=== PATIENT | female | born 1945 | race Caucasian/White ===

== ENCOUNTER 2017-11-02 11:47 | Outpatient (CLI) | payer OTHER ==
[~2017-11-02 11:47] MED LIST: COUMADIN3 MG; GLUCOPHAGE XR500 MG PO; LIPITOR20 MG; METFORMIN HCL500 M1; NEURONTIN600 MG; NEURONTIN600 MG PO; NEURONTIN800 MG; PERCOCET 5/3251 TAB PO; PRINIVIL5 MG; SULFASALAZINE500 MG; SYNTHROID50 MCG; ULTRAM50 MG PO
== END 2017-11-02 11:49 | disposition home or self-care (01) ==
LOC: MAMO-SONO 11:47
DX: N64.89 Other specified disorders of breast (principal)

== ENCOUNTER 2018-01-17 10:21 | Outpatient (CLI) | payer OTHER | END 2018-01-17 10:23 | disposition home or self-care (01) | LOC: NUCLEAR 10:21 | DX: M81.0 Age-related osteoporosis without current pathological fracture (principal) ==

== ENCOUNTER 2020-12-03 11:17 | Outpatient (CLI) | payer OTHER | END 2020-12-03 11:31 | disposition home or self-care (01) | LOC: NUCLEAR 11:17 | PROVIDERS: ATTEND Internal Medicine Hematology & Oncology | DX: C50.412 Malignant neoplasm of upper-outer quadrant of left female breast (principal); D68.61 Antiphospholipid syndrome; Z85.3 Personal history of malignant neoplasm of breast; E72.12 Methylenetetrahydrofolate reductase deficiency; E72.11 Homocystinuria; D51.3 Other dietary vitamin B12 deficiency anemia; D51.1 Vitamin B12 deficiency anemia due to selective vitamin B12 malabsorption with proteinuria; E04.8 Other specified nontoxic goiter; Z79.01 Long term (current) use of anticoagulants; D05.12 Intraductal carcinoma in situ of left breast; I80.292 Phlebitis and thrombophlebitis of other deep vessels of left lower extremity; I10 Essential (primary) hypertension; E08.65 Diabetes mellitus due to underlying condition with hyperglycemia; E03.8 Other specified hypothyroidism; E55.9 Vitamin D deficiency, unspecified; I73.89 Other specified peripheral vascular diseases; E78.2 Mixed hyperlipidemia ==

== ENCOUNTER 2020-12-24 09:13 | Outpatient (CLI) | payer OTHER | END 2020-12-24 09:35 | disposition home or self-care (01) | LOC: MAMO-SONO 09:13 | PROVIDERS: ATTEND Surgery | DX: Z12.31 Encounter for screening mammogram for malignant neoplasm of breast (principal); N60.02 Solitary cyst of left breast; N60.11 Diffuse cystic mastopathy of right breast; N60.12 Diffuse cystic mastopathy of left breast ==

== ENCOUNTER 2022-10-13 07:13 | Outpatient (CLI) | payer OTHER | END 2022-10-13 07:14 | disposition home or self-care (01) | LOC: NUCLEAR 07:13 | PROVIDERS: ATTEND Internal Medicine Cardiovascular Disease | DX: I25.10 Atherosclerotic heart disease of native coronary artery without angina pectoris (principal) | CPT/HCPCS: 78452; 93017; A9500; J0153 ==

== ENCOUNTER → 2024-12-06 08:55 | Outpatient (CLI) | payer OTHER ==
[2024-12-06 10:13] LABS: URINE APPEARANCE Clear; URINE BILIRRUBIN Negative (NEGATIVE); URINE BLOOD Negative; URINE COLOR Yellow; URINE GLUCOSE Negative (NEGATIVE); URINE KETONE Trace (NEGATIVE); URINE LEUKOCYTE Negative; URINE NITRATE Negative; URINE PROTEIN Negative (NEGATIVE)
[2024-12-06 10:15] LABS: URINE BACTERIA 31.8 uL (0.0-1933); URINE EPITHELIAL CELLS 9.3 uL (0.0-38.8); URINE RBC 7.6 uL (0.0-20.8); URINE WBC 3.3 uL (0.0-23.2)
[2024-12-06 10:27] LABS: INR 2.43; PROTHROMBIN TIME 24.8 SECONDS (9.0-11.5)
[2024-12-06 10:56] LABS: HEMATOCRIT 41.7 % (36.0-45.00); HEMOGLOBIN 14.3 g/dL (12.0-15.00); MEAN CELL VOLUME 98.7 fL (80.00-100.00); MEAN CORPUSCULAR HEMOGLOBIN 33.7 pg (27.00-32.0); MEAN CORPUSCULAR HGB CONC 34.2 g/dl (32.0-36.0); PLATELET COUNT 231 K/uL (150-450); RED BLOOD COUNT 4.23 M/uL (4.00-6.00)
[2024-12-06 10:59] LABS: ALBUMIN 3.8 gm/dL (3.4-5.0); BILIRUBIN TOTAL 1.25 mg/dL (0.3-1.2); CALCIUM 9.5 mg/dL (8.5-10.1); CREATININE SERUM 0.71 mg/dL (0.55-1.02); GFR 79.82; GLOBULINA 3.3 G/DL (2.4-3.5); POTASSIUM 4.2 mEq/L (3.5-5.1); TOTAL PROTEIN 7.1 gm/dL (6.4-8.2)
[2024-12-06 11:11] LABS: ERYTHROCYTE SEDIMENTATION RATE 31 mm/hr
[2024-12-06 11:51] LABS: FOLIC ACID > 20.00 ng/ml (4.78-20); VITAMIN D3 25 HYDROXY 47.32 ng/ml (30-120)
[2024-12-07 10:04] LABS: CA 125 4.1 U/mL (0.0-38.1); CA 19-9 9 U/mL (0-35); HOMOCYSTEINE 7.3 umol/L (0.0-19.2)
[2024-12-08 16:08] LABS: dRVVT 60.1 sec (0.0-47.0); interp Comment: (.); ptt-la 38.8 sec (0.0-43.5)
== END | disposition home or self-care (01) ==
LOC: LAB 08:55
PROVIDERS: ATTEND Internal Medicine Hematology & Oncology
DX: C50.412 Malignant neoplasm of upper-outer quadrant of left female breast (principal); Z85.3 Personal history of malignant neoplasm of breast; E72.12 Methylenetetrahydrofolate reductase deficiency; E72.11 Homocystinuria; D51.3 Other dietary vitamin B12 deficiency anemia; D51.1 Vitamin B12 deficiency anemia due to selective vitamin B12 malabsorption with proteinuria; E04.9 Nontoxic goiter, unspecified; Z79.01 Long term (current) use of anticoagulants; I80.292 Phlebitis and thrombophlebitis of other deep vessels of left lower extremity; I10 Essential (primary) hypertension; E03.9 Hypothyroidism, unspecified; E08.65 Diabetes mellitus due to underlying condition with hyperglycemia; E55.9 Vitamin D deficiency, unspecified; I73.9 Peripheral vascular disease, unspecified; E78.2 Mixed hyperlipidemia; R74.02 Elevation of levels of lactic acid dehydrogenase [LDH]; R70.0 Elevated erythrocyte sedimentation rate; D51.8 Other vitamin B12 deficiency anemias; C56.9 Malignant neoplasm of unspecified ovary; R97.8 Other abnormal tumor markers; N39.0 Urinary tract infection, site not specified

== ENCOUNTER 2024-12-06 10:14 | Outpatient (CLI) | payer OTHER | END 2024-12-06 10:15 | disposition home or self-care (01) | LOC: NUCLEAR 10:14 | PROVIDERS: ATTEND Internal Medicine | DX: M81.0 Age-related osteoporosis without current pathological fracture (principal) ==

== ENCOUNTER 2025-03-23 07:49 | Outpatient (CLI) | payer OTHER | END 2025-03-23 07:50 | disposition home or self-care (01) | LOC: NUCLEAR 07:49 | PROVIDERS: ATTEND Surgery | DX: C50.411 Malignant neoplasm of upper-outer quadrant of right female breast (principal) | CPT/HCPCS: 78816; A9552 ==

== ENCOUNTER → 2025-03-23 12:17 | Outpatient (CLI) | payer OTHER ==
[2025-03-23 13:20] LABS: BASO % 0.3 % (0.1-1.2); EOS # 0.09 (0.04-0.54); EOS % 1.3 % (0.7-7.0); HEMATOCRIT 42.6 % (34.1-44.9); HEMOGLOBIN 14.4 g/dL (11.2-15.7); LYMPH % 46.5 % (19.3-53.1); MONO # 0.71 (0.24-0.82); MONO % 10.3 % (4.7-12.5); NEUT # 2.85 (1.56-6.13); NEUT % 41.5 % (34.0-71.1); PLATELET COUNT 237 K/uL (163-369); RED BLOOD COUNT 4.36 M/uL (3.93-5.22); RED CELL DISTRIBUTION WIDTH 13.2 % (11.6-14.4)
[2025-03-23 13:46] LABS: INR 2.49; PARTIAL THROMBOPLASTIN TIME 35.2 SECONDS (22.0-34.0); PROTHROMBIN TIME 25.4 SECONDS (9.0-11.5)
[2025-03-23 13:58] LABS: ALBUMIN 3.9 gm/dL (3.4-5.0); BILIRUBIN TOTAL 1.79 mg/dL (0.3-1.2); CALCIUM 8.8 mg/dL (8.5-10.1); CREATININE SERUM 0.71 mg/dL (0.55-1.02); GFR 79.82; GLOBULINA 3.2 G/DL (2.4-3.5); POTASSIUM 3.53 mEq/L (3.5-5.1); TOTAL PROTEIN 7.1 gm/dL (6.4-8.2)
[2025-03-27 11:08] LABS: CA 125 3.7 U/mL (0.0-38.1); CA 15-3 22.1 U/mL (0.0-25.0)
== END | disposition home or self-care (01) ==
LOC: LAB 12:17
PROVIDERS: ATTEND Internal Medicine Hematology & Oncology
DX: C50.411 Malignant neoplasm of upper-outer quadrant of right female breast (principal); C50.412 Malignant neoplasm of upper-outer quadrant of left female breast; D68.61 Antiphospholipid syndrome; Z85.3 Personal history of malignant neoplasm of breast; D51.3 Other dietary vitamin B12 deficiency anemia; E04.9 Nontoxic goiter, unspecified; Z79.01 Long term (current) use of anticoagulants; I80.292 Phlebitis and thrombophlebitis of other deep vessels of left lower extremity; I10 Essential (primary) hypertension; E03.9 Hypothyroidism, unspecified; E08.65 Diabetes mellitus due to underlying condition with hyperglycemia; E55.9 Vitamin D deficiency, unspecified; I73.9 Peripheral vascular disease, unspecified; E78.2 Mixed hyperlipidemia; D50.8 Other iron deficiency anemias; R74.02 Elevation of levels of lactic acid dehydrogenase [LDH]; K76.89 Other specified diseases of liver; D68.8 Other specified coagulation defects; C56.9 Malignant neoplasm of unspecified ovary; C50.919 Malignant neoplasm of unspecified site of unspecified female breast; R97.0 Elevated carcinoembryonic antigen [CEA]; R97.8 Other abnormal tumor markers

== ENCOUNTER 2025-04-13 07:06 | Day surgery (SDC) | payer OTHER ==
[2025-04-12 09:55] LABS: BASO % 0.5 % (0.1-1.2); EOS # 0.11 (0.04-0.54); EOS % 1.7 % (0.7-7.0); HEMOGLOBIN 13.8 g/dL (11.2-15.7); LYMPH # 2.85 (1.18-3.74); LYMPH % 44.5 % (19.3-53.1); MEAN CORPUSCULAR HEMOGLOBIN 32.5 pg (25.6-32.2); MONO # 0.68 (0.24-0.82); MONO % 10.6 % (4.7-12.5); NEUT # 2.71 (1.56-6.13); NEUT % 42.4 % (34.0-71.1); PLATELET COUNT 211 K/uL (163-369); RED BLOOD COUNT 4.25 M/uL (3.93-5.22); RED CELL DISTRIBUTION WIDTH 13.5 % (11.6-14.4)
[2025-04-12 09:58] LABS: URINE APPEARANCE Clear; URINE BILIRRUBIN Negative (NEGATIVE); URINE BLOOD Negative; URINE COLOR Yellow; URINE GLUCOSE Negative (NEGATIVE); URINE KETONE Negative (NEGATIVE); URINE LEUKOCYTE Negative; URINE NITRATE Negative; URINE PROTEIN Negative (NEGATIVE); URINE UROBILINOGEN 0.2 E.U./dl
[2025-04-12 09:59] LABS: URINE EPITHELIAL CELLS 7.2 uL (0.0-38.8)
[2025-04-12 10:02] LABS: URINE WBC 1.5 uL (0.0-23.2)
[2025-04-12 10:30] LABS: INR 1.1; PARTIAL THROMBOPLASTIN TIME 24.8 SECONDS (22.0-34.0); PROTHROMBIN TIME 11.9 SECONDS (9.0-11.5)
[2025-04-12 10:35] LABS: ALBUMIN 3.8 gm/dL (3.4-5.0); BILIRUBIN TOTAL 1.24 mg/dL (0.3-1.2); CALCIUM 8.9 mg/dL (8.5-10.1); CREATININE SERUM 0.68 mg/dL (0.55-1.02); GFR 83.9; GLOBULINA 3.2 G/DL (2.4-3.5); POTASSIUM 4.2 mEq/L (3.5-5.1)
[2025-04-12 12:42] VITALS: BP 120/78
[~2025-04-13] VITALS: Ht 152.4 cm; Wt 88.5 kg
[2025-04-13] MEDS ORDERED: CEFAZOLIN SODIUM 1,000 MG VIAL ONE ×2 (11:58→15:37)
== END 2025-04-13 20:10 | disposition home or self-care (01) ==
LOC: CIR.AMB 07:06
PROVIDERS: ATTEND Surgery
DX: C50.411 Malignant neoplasm of upper-outer quadrant of right female breast (principal)

== ENCOUNTER 2025-06-11 13:13 | Outpatient (CLI) | payer OTHER | END 2025-06-11 13:20 | disposition home or self-care (01) | LOC: SONOGRAMA 13:13 | PROVIDERS: ATTEND Surgery | DX: N60.11 Diffuse cystic mastopathy of right breast (principal); N60.12 Diffuse cystic mastopathy of left breast ==

== ENCOUNTER 2025-06-15 08:06 | Outpatient (CLI) | payer OTHER | END 2025-06-15 08:18 | disposition home or self-care (01) | LOC: SONOGRAMA 08:06 | PROVIDERS: ATTEND Surgery | DX: N60.11 Diffuse cystic mastopathy of right breast (principal); N60.12 Diffuse cystic mastopathy of left breast; N61.0 Mastitis without abscess; N61.1 Abscess of the breast and nipple ==

== ENCOUNTER → 2025-06-15 09:59 | Outpatient (CLI) | payer OTHER | END | disposition home or self-care (01) | LOC: LAB 09:59 | PROVIDERS: ATTEND Surgery | DX: N61.0 Mastitis without abscess (principal) ==

== ENCOUNTER 2025-06-15 10:32 | Inpatient (IN) | payer OTHER ==
[~2025-06-15] VITALS: Ht 152.4 cm; Wt 79.4 kg
[2025-06-15] MEDS ORDERED: FAMOtidine 10 MG/ML (4ML VIAL) IV ONE (11:30)
[2025-06-15] MEDS ORDERED: PIPERACILLIN/TAZOBACTAM SODIUM 3.375 GM VIAL IV ONE (11:30)
[2025-06-15 12:50] LABS: BASO % 0.2 % (0.1-1.2); EOS # 0.07 (0.04-0.54); EOS % 0.4 % (0.7-7.0); LYMPH # 3.71 (1.18-3.74); LYMPH % 23.6 % (19.3-53.1); MEAN PLATELET VOLUME 9.30 fl (9.4-12.4); MONO # 1.41 (0.24-0.82); MONO % 9.0 % (4.7-12.5); NEUT # 10.44 (1.56-6.13); NEUT % 66.4 % (34.0-71.1); RED CELL DISTRIBUTION WIDTH 12.9 % (11.6-14.4)
[2025-06-15 13:33] LABS: ALT/SGPT 21.0 U/L (12-78); AST/SGOT 19.0 U/L (15-37); BILIRUBIN TOTAL 0.79 mg/dL (0.3-1.2); GLOBULINA 3.8 G/DL (2.4-3.5)
[2025-06-15 13:46] LABS: INR 1.5
[2025-06-15 13:55] LABS: BUN CREA RATIO 12.0 (7.0-25.0); CREATININE SERUM 0.78 mg/dL (0.55-1.02); GFR 71.43; GLUCOSE FASTING 113.0 mg/dL (65-100); OSMOLALITY SERUM 277.0 MOSM/KG (275-295)
[2025-06-15 14:05] LABS: URINE APPEARANCE Clear; URINE BILIRRUBIN Negative (NEGATIVE); URINE BLOOD Negative; URINE COLOR Yellow; URINE GLUCOSE Negative (NEGATIVE); URINE KETONE Trace (NEGATIVE); URINE LEUKOCYTE Trace; URINE NITRATE Negative; URINE PROTEIN Trace (NEGATIVE); URINE UROBILINOGEN 1.0 E.U./dl
[2025-06-15 14:10] LABS: URINE BACTERIA 41.9 uL (0.0-1933); URINE EPITHELIAL CELLS 52.4 uL (0.0-38.8); URINE RBC 12.9 uL (0.0-20.8); URINE WBC 14.7 uL (0.0-23.2)
[2025-06-15 14:41] LABS: ERYTHROCYTE SEDIMENTATION RATE 87 mm/hr (0-30)
[2025-06-15 14:42] LABS: TYPE CELLS SQUAMOUS; URINE CAST 0.58 uL (0.0-1.40); URINE CRYSTALS FEW /HPF
[2025-06-15] MEDS ORDERED: VANCOMYCIN HCL 1,000 MG VIAL IV SCH ×2 (16:12→16:16)
[2025-06-15] MEDS ORDERED: DEXTROSE 50 % IN WATER 0.5 G/ML VIAL IV PRN (16:15)
[2025-06-15] MEDS ORDERED: INSULIN LISPRO 1,000 UNIT/10 ML UNITS SUBCUTANEO PRN (16:15)
[2025-06-15] MEDS ORDERED: ACETAMINOPHEN 500 MG GEL..CAP PO PRN (16:15)
[2025-06-15] MEDS ORDERED: 0.9 % SODIUM CHLORIDE 1,000 ML IV SCH (16:15)
[2025-06-15] MEDS ORDERED: LACTOBACILLUS ACIDOPHILUS 1 CAP CAP PO SCH (17:00)
[2025-06-15] MEDS ORDERED: LISINOPRIL 5 MG TABLET PO SCH (17:00)
[2025-06-15] MEDS ORDERED: CEFEPIME HCL 2,000 MG in DEXTROSE 5 % IN WATER 100 ML IV SCH (17:00)
[2025-06-15 18:41] VITALS: BP 130/66; BP 132/66; O2SAT 96
[2025-06-15] MEDS ORDERED: WARFARIN SODIUM 3 MG TABLET PO SCH (21:00)
[2025-06-15] MEDS ORDERED: ATORVASTATIN CALCIUM 20 MG TABLET PO SCH (21:00)
[2025-06-16 01:27] VITALS: BP 126/60; O2SAT 96
[2025-06-16] MEDS ORDERED: LEVOTHYROXINE SODIUM 75 MCG TABLET PO SCH (06:00)
[2025-06-16 07:21] LABS: BASO % 0.4 % (0.1-1.2); EOS # 0.18 (0.04-0.54); EOS % 1.8 % (0.7-7.0); LYMPH # 2.97 (1.18-3.74); LYMPH % 29.0 % (19.3-53.1); MEAN PLATELET VOLUME 9.80 fl (9.4-12.4); MONO # 0.90 (0.24-0.82); MONO % 8.8 % (4.7-12.5); NEUT # 6.11 (1.56-6.13); NEUT % 59.7 % (34.0-71.1); RED CELL DISTRIBUTION WIDTH 13.0 % (11.6-14.4)
[2025-06-16] MEDS ORDERED: PANTOPRAZOLE SODIUM 40 MG TABLET.DR PO SCH (07:30)
[2025-06-16 07:41] LABS: ALT/SGPT 20.0 U/L (12-78); AST/SGOT 12.0 U/L (15-37); BILIRUBIN TOTAL 0.88 mg/dL (0.3-1.2); BUN CREA RATIO 19.0 (7.0-25.0); CREATININE SERUM 0.64 mg/dL (0.55-1.02); GFR 89.74; GLOBULINA 3.3 G/DL (2.4-3.5); GLUCOSE FASTING 124.0 mg/dL (65-100); OSMOLALITY SERUM 282.0 MOSM/KG (275-295)
[2025-06-16 08:57] VITALS: BP 118/61
[2025-06-16] MEDS ORDERED: GABAPENTIN 800 MG TABLET PO SCH (09:00)
[2025-06-16 17:57] VITALS: BP 128/81
[2025-06-17 01:08] VITALS: BP 113/60
[2025-06-17 05:28] LABS: BUN CREA RATIO 24.0 (7.0-25.0); CREATININE SERUM 0.49 mg/dL (0.55-1.02); GFR 122.14; GLUCOSE FASTING 118.0 mg/dL (65-100); OSMOLALITY SERUM 290.0 MOSM/KG (275-295)
[2025-06-17] MEDS ORDERED: CHLORHEXIDINE GLUCONATE 120 ML BOTTLE TOP SCH (09:00)
[2025-06-17 09:10] VITALS: BP 145/76
[2025-06-17 17:49] VITALS: BP 107/68
[2025-06-18 00:59] VITALS: BP 109/58
[2025-06-18 06:18] LABS: BASO % 0.5 % (0.1-1.2); EOS # 0.21 (0.04-0.54); EOS % 2.4 % (0.7-7.0); LYMPH # 3.42 (1.18-3.74); LYMPH % 39.0 % (19.3-53.1); MEAN PLATELET VOLUME 9.60 fl (9.4-12.4); MONO # 0.81 (0.24-0.82); MONO % 9.2 % (4.7-12.5); NEUT # 4.27 (1.56-6.13); NEUT % 48.7 % (34.0-71.1); RED CELL DISTRIBUTION WIDTH 13.0 % (11.6-14.4)
[2025-06-18 07:02] LABS: ALT/SGPT 25.0 U/L (12-78); AST/SGOT 18.0 U/L (15-37); BILIRUBIN TOTAL 0.67 mg/dL (0.3-1.2); BUN CREA RATIO 22.0 (7.0-25.0); CREATININE SERUM 0.64 mg/dL (0.55-1.02); GFR 89.74; GLOBULINA 3.6 G/DL (2.4-3.5); GLUCOSE FASTING 122.0 mg/dL (65-100); OSMOLALITY SERUM 287.0 MOSM/KG (275-295)
[2025-06-18 07:09] LABS: ERYTHROCYTE SEDIMENTATION RATE 105 mm/hr (0-30)
[2025-06-18 09:33] VITALS: BP 140/69
[2025-06-18 17:52] VITALS: BP 140/87
[2025-06-18] MEDS ORDERED: ENOXAPARIN SODIUM 80 MG/0.8 ML SYRINGE SUBCUTANEO SCH (21:00)
[2025-06-19 02:07] VITALS: BP 119/65; O2SAT 96
[2025-06-19 08:30] VITALS: BP 115/68; O2SAT 96
[2025-06-19 16:51] VITALS: BP 122/56
[2025-06-20 02:30] VITALS: BP 113/70; O2SAT 99
[2025-06-20 08:26] VITALS: BP 120/70; O2SAT 96
[2025-06-20 16:37] VITALS: BP 123/76
[2025-06-20] MEDS ORDERED: VANCOMYCIN HCL 5 MG/ML REDILUIDO IV SCH (17:00)
[2025-06-21 00:44] VITALS: BP 111/68; O2SAT 98
[2025-06-21 06:59] LABS: BASO % 0.5 % (0.1-1.2); EOS # 0.21 (0.04-0.54); EOS % 2.6 % (0.7-7.0); LYMPH # 2.92 (1.18-3.74); LYMPH % 36.7 % (19.3-53.1); MEAN PLATELET VOLUME 9.70 fl (9.4-12.4); MONO # 1.11 (0.24-0.82); NEUT # 3.64 (1.56-6.13); NEUT % 45.8 % (34.0-71.1); RED CELL DISTRIBUTION WIDTH 13.2 % (11.6-14.4)
[2025-06-21 07:05] LABS: INR 1.17
[2025-06-21 07:09] LABS: ALT/SGPT 21.0 U/L (12-78); AST/SGOT 13.0 U/L (15-37); BILIRUBIN TOTAL 0.46 mg/dL (0.3-1.2); BUN CREA RATIO 18.0 (7.0-25.0); CREATININE SERUM 0.73 mg/dL (0.55-1.02); GFR 77.1; GLOBULINA 3.2 G/DL (2.4-3.5); GLUCOSE FASTING 137.0 mg/dL (65-100); OSMOLALITY SERUM 293.0 MOSM/KG (275-295)
[2025-06-21 07:18] LABS: MONO % 13.9 % (4.7-12.5)
[2025-06-21 07:55] VITALS: BP 122/70
[2025-06-21] MEDS ORDERED: MEROPENEM 500 MG/VIAL VIAL IV STA (11:44)
[2025-06-21 16:57] VITALS: BP 120/75
[2025-06-21] MEDS ORDERED: MEROPENEM 500 MG/VIAL VIAL IV SCH (18:00)
[2025-06-22 01:46] VITALS: BP 121/62; O2SAT 96
[2025-06-22] MEDS ORDERED: CHLORHEXIDINE GLUCONATE 120 ML BOTTLE TOP ONE (08:26)
[2025-06-22] MEDS ORDERED: SUGAMMADEX SODIUM 200 MG/2 ML VIAL IV ONE ×2 (09:33→09:35)
[2025-06-22] MEDS ORDERED: MORPHINE SULFATE 2 MG/ML CARTRIDGE IV ONE (10:45)
[2025-06-22 18:43] VITALS: BP 116/62
[2025-06-23 01:00] VITALS: BP 127/67; O2SAT 94
[2025-06-23 08:35] VITALS: BP 123/63; O2SAT 98
[2025-06-23 15:06] VITALS: BP 114/79; O2SAT 93
[2025-06-23] MEDS ORDERED: VANCOMYCIN HCL 5 MG/ML REDILUIDO IV SCH (17:00)
[2025-06-24 01:49] VITALS: BP 113/62; O2SAT 96
[2025-06-24 08:59] VITALS: BP 138/76; O2SAT 94
[2025-06-24 15:38] VITALS: BP 123/76; O2SAT 95
[2025-06-25 01:23] VITALS: BP 117/69; O2SAT 95
[2025-06-25 07:40] VITALS: BP 145/84; O2SAT 94
== END 2025-06-25 13:43 | disposition home or self-care (01) | DRG 585 ==
LOC: ER 10:32 → SEC-K 16:28 → MEDI 16:28
PROVIDERS: General Practice; Internal Medicine; Surgery; ADMIT Internal Medicine; ATTEND Internal Medicine
PROC: B54NZZZ Ultrasonography of Left Upper Extremity Veins (ICD-10-PCS; 2025-06-18)
PROC: 02HV33Z Insertion of Infusion Device into Superior Vena Cava, Percutaneous Approach (ICD-10-PCS; 2025-06-19)
PROC: 0H9T00Z Drainage of Right Breast with Drainage Device, Open Approach (ICD-10-PCS; 2025-06-22)
PROC: 0HBWXZZ Excision of Right Nipple, External Approach (ICD-10-PCS; principal; 2025-06-22 11:45)
DX: C50.911 Malignant neoplasm of unspecified site of right female breast (principal); E03.9 Hypothyroidism, unspecified; E78.5 Hyperlipidemia, unspecified; I10 Essential (primary) hypertension; E11.9 Type 2 diabetes mellitus without complications; Z79.4 Long term (current) use of insulin